=== PATIENT | male | born 1950 | race Hispanic/Latino ===

== ENCOUNTER 2017-05-28 07:57 | Day surgery (SDC) | payer MEDICARE ==
[2017-05-28] MEDS ORDERED: Lactated Ringer's 1,000 ML IV ONE (11:00)
[2017-05-28] MEDS ORDERED: Lidocaine Hydrochloride 5 ML INJ ONE (11:14)
[2017-05-28] MEDS ORDERED: Propofol 10 mg/ml Inj (20 ML) ONE (11:14)
[2017-05-28 12:05] VITALS: TEMP 97.5
[2017-05-28 13:29] VITALS: BP 101/60; PULSE 88; RESP 20; O2SAT 97
== END 2017-05-28 12:33 | disposition home or self-care (01) ==
LOC: C.ENDO 07:57
PROVIDERS: ATTEND Internal Medicine Gastroenterology
DX: K94.23 Gastrostomy malfunction (principal)
CPT/HCPCS: 43246; 82948; 88305; J2704; J7120